=== PATIENT | male | born 1960 ===

== ENCOUNTER → 2017-11-14 | Emergency (ER) | payer OTHER ==
[~2017-11-14] VITALS: Ht 170.2 cm; Wt 90.7 kg
[~2017-11-14] MED LIST: BENICAR40 MG; NORVASC10 MG
== END | disposition home or self-care (01) ==
LOC: ER 12:45
DX: S90.122A Contusion of left lesser toe(s) without damage to nail, initial encounter (principal); W22.8XXA Striking against or struck by other objects, initial encounter; Y93.89 Activity, other specified; Y92.89 Other specified places as the place of occurrence of the external cause; Y99.8 Other external cause status

== ENCOUNTER 2023-03-01 05:23 | Day surgery (SDC) | payer OTHER ==
[~2023-03-01] VITALS: Ht 170.2 cm; Wt 90.7 kg
[~2023-03-01 05:23] MED LIST changes: +HORIZANT300 MG PO
[2023-03-01] MEDS ORDERED: NEURONTIN300 MG PO (08:02)
[2023-03-01] MEDS ORDERED: PERCOCET 5-3251 EACH PO (08:02)
[2023-03-01] MEDS ORDERED: DERMOPLAST PAIN78 GM TOP (08:02)
[2023-03-01] MEDS ORDERED: KETO10TA2 PO (08:03)
== END 2023-03-01 11:40 | disposition home or self-care (01) ==
LOC: CIR.AMB 05:23
PROVIDERS: ATTEND Surgery
DX: K60.1 Chronic anal fissure (principal); K62.4 Stenosis of anus and rectum; K64.8 Other hemorrhoids; Z20.822 Contact with and (suspected) exposure to COVID-19; I10 Essential (primary) hypertension